=== PATIENT | female | born 1980 | race Caucasian/White ===

== ENCOUNTER 2017-02-10 23:59 | Emergency (ER) | payer BC ==
--- NOTE | ~2017-02-10 | ER ---
PATIENT'S NAME: MADYSON LINE Neil [facility] AGE: 36 Y [address] ROOM: [place] [address] LOCATION: [facility] ADMIT DATE: 02/10/2017 ER/Outpatient Report DISCHARGE DATE: FAMILY PHYSICIAN: Matteo Nicole MD ATTENDING PHYSICIAN: Pablo Medellin Time of Arrival: 2359 hours. Time of Evaluation: 0002 hours. CHIEF COMPLAINT: Vomiting and diarrhea. HISTORY OF PRESENT ILLNESS: The patient is a 36-year-old female who presents to the emergency department today with a chief complaint of vomiting and diarrhea. She reports this started 6 hours prior to arrival. She is having some pain with urination as well as some midepigastric pain. It is currently 3/10 in severity. It is sharp. She has had multiple episodes of vomiting, 3 episodes of diarrhea. She denies any fevers, does have some chills. PAST MEDICAL HISTORY: 1. ADHD. 2. Depression. 3. Anxiety. PAST SURGICAL HISTORY: None. SOCIAL HISTORY: The patient smokes half pack per day. Drinks alcohol occasionally. Denies illicit drug use. ALLERGIES: NO KNOWN DRUG ALLERGIES. MEDICATIONS: Please see list. PRIMARY CARE DOCTOR: Dr. Nicole. REVIEW OF SYSTEMS: All systems are reviewed by myself are negative with the exception of those discussed in the HPI and past medical history. PATIENT'S NAME: MARKELL LIN [facility] AGE: 36 Y [address] ROOM: [place] [id number] LOCATION: [facility] ADMIT DATE: 02/10/2017 ER/Outpatient Report DISCHARGE DATE: FAMILY PHYSICIAN: Matteo Nicole MD ATTENDING PHYSICIAN: Pablo Medellin PHYSICAL EXAMINATION: VITAL SIGNS: Weight 67.9 kg. Blood pressure 135/91, pulse 71, respiratory rate 18, temperature 95.7, and oxygen saturation 98% on room air. GENERAL: The patient is a 36-year-old female, appears stated age, in no acute distress. HEENT: Normocephalic and atraumatic. Pupils are equal, round, and reactive to light. Mucous membranes are moist. NECK: Supple. There is no nuchal rigidity. CARDIOVASCULAR: Regular rate and rhythm. No murmurs, rubs, or gallops. LUNGS: Clear to auscultation bilaterally. No wheezes, rales, or rhonchi. ABDOMEN: Soft, mild midepigastric tenderness to palpation. There is no rebound, rigidity, or guarding. Positive bowel sounds. MUSCULOSKELETAL: The patient moves all 4 extremities. SKIN: Warm and dry. There are no rashes or lesions noted. LABORATORY DATA AND IMAGING STUDIES: Labs and X-rays: CBC is normal. CMP is normal. LFTs are normal. Urinalysis is normal. Urine-hCG is negative. Lipase is normal. H. pylori is negative. Stool is negative. IMPRESSION: 1. Nausea and vomiting. 2. Diarrhea, suspect viral illness. 3. Initial visit. EMERGENCY DEPARTMENT COURSE: The patient was brought back to the examination room. Seen and evaluated by myself. IV was established. Laboratory analysis and imaging are obtained as described above. The patient is given a liter of normal saline IV. She is given Toradol 30 mg IV. She is also given 10 mg of Compazine IV and 50 mg of Benadryl IV. This has resulted in significant improvement of patient's symptoms. I have discussed results with the patient. I have re-examined the patient's abdominal exam. She continues to have a nonsurgical abdominal exam at this time. I have discussed to follow up with primary care doctor in 2 to 3 days for re-evaluation. I have written prescription for Compazine for home. I have discussed return to care instructions including worsening symptoms or any other concerns to return to the emergency department as soon as possible. The patient is agreeable without further questions. DISPOSITION: The patient was discharged to home in good condition. PATIENT'S NAME: MARKELL LIN [facility] AGE: 36 Y [address] ROOM: [place] [address] LOCATION: [facility] ADMIT DATE: 02/10/2017 ER/Outpatient Report DISCHARGE DATE: FAMILY PHYSICIAN: Matteo Nicole MD ATTENDING PHYSICIAN: Pablo Medellin DO KJR/mary /[id number] d: 02/11/178 t: 02/13/17 0644, OUTPATIENT REPORT
[2017-02-11 00:43] LABS: BILIRUBIN URINE NEGATIVE (NEGATIVE); BLOOD URINE NEGATIVE /UL (NEGATIVE); COLOR URINE YELLOW (YELLOW); GLUCOSE URINE NEGATIVE (NEGATIVE); KETONE URINE NEGATIVE (NEGATIVE); LEUKOCYTES URINE NEGATIVE /UL (NEGATIVE); NITRITE URINE NEGATIVE (NEGATIVE); PROTEIN URINE NEGATIVE (NEGATIVE); TURBIDITY URINE CLEAR (CLEAR); UROBILINOGEN URINE NORMAL (NORMAL)
[2017-02-11 00:50] LABS: BASOPHIL % 0.7 %; EOSINOPHIL # 0.2 K/uL (0.0-0.5); EOSINOPHIL % 2.7 %; HEMATOCRIT 37.6 % (33.0-46.0); IMMATURE GRANULOCYTE % 0.2 %; LYMPHOCYTE # 2.2 K/uL (0.8-4.0); LYMPHOCYTE % 38.9 %; MCH 31.9 pg (27.0-34.0); MCHC 34.6 gm/dL (32.0-36.5); MCV 92.2 fl (83.0-98.0); MONOCYTE # 0.3 K/uL (0.0-1.0); MONOCYTE % 5.6 %; NEUTROPHIL # (ANC) 2.9 K/uL (1.8-7.8); NEUTROPHIL % 51.9 %; NRBC % 0 /100WBC (0-0.00); PLATELET COUNT 230 K/uL (150-450); RBC 4.08 M/uL (3.50-5.50); WBC 5.6 K/uL (4.0-11.0)
[2017-02-11 01:06] LABS: ALBUMIN 3.7 gm/dL (3.5-5.0); ALK PHOS 64 IU/L (33-138); ALT 24 IU/L (12-78); ANION GAP 10.8 (10.0-19.0); AST 18 IU/L (10-40); BLOOD UREA NITROGEN 9 mg/dL (6-24); CALCIUM 8.4 mg/dL (8.5-10.5); CHLORIDE 106 mMol/L (96-110); CO2 26 mMol/L (22-32); CREATININE 0.7 mg/dL (0.5-1.1); POTASSIUM 3.8 mMol/L (3.7-5.1); SODIUM 139 mMol/L (135-145); TOTAL BILIRUBIN 0.2 mg/dL (0.0-1.5); TOTAL PROTEIN 7.2 g/dL (6.0-8.4)
[2017-02-11 01:57] LABS: ADENOVIRUS F 40/41 Not Detected (Not Detect); ASTROVIRUS Not Detected (Not Detect); C DIFFICILE TOXIN A/B Not Detected (Not Detect); CAMPYLOBACTER SPECIES Not Detected (Not Detect); CRYPTOSPORIDIUM Not Detected (Not Detect); CYCLOSPORA CAYETANENSIS Not Detected (Not Detect); E. COLI (EPEC) Not Detected (Not Detect); E. COLI (ETEC) Not Detected (Not Detect); E. COLI (STEC) Not Detected (Not Detect); ENTAMOEBA HISTOLYTICA Not Detected (Not Detect); GIARDIA LAMBLIA Not Detected (Not Detect); NOROVIRUS GI/ GII Not Detected (Not Detect); PLESIOMONAS SPECIES Not Detected (Not Detect); ROTAVIRUS A Not Detected (Not Detect); SALMONELLA SPECIES Not Detected (Not Detect); SAPOVIRUS Not Detected (Not Detect); SHIGELLA AND EIEC Not Detected (Not Detect); VIBRIO CHOLERAE Not Detected (Not Detect); VIBRIO SPECIES Not Detected (Not Detect); YERSINIA ENTEROCOLITICA Not Detected (Not Detect)
== END 2017-02-11 02:13 | disposition disaster alternative care site (69) ==
LOC: GMED 23:59
PROVIDERS: Emergency Medicine
DX: R11.2 Nausea with vomiting, unspecified (principal); R19.7 Diarrhea, unspecified; F90.9 Attention-deficit hyperactivity disorder, unspecified type; F32.9 Major depressive disorder, single episode, unspecified; F41.9 Anxiety disorder, unspecified; F17.210 Nicotine dependence, cigarettes, uncomplicated; Z79.899 Other long term (current) drug therapy
CPT/HCPCS: J0780; J1200; J1885; J2405; J7030